=== PATIENT | male | born 1995 | race Caucasian/White ===

== ENCOUNTER 2017-05-10 01:51 | Emergency (ER) | payer MEDICAID ==
--- NOTE | 2017-05-10 01:56 | EDPHY ---
H & P HPI/ROS: Chief Complaint: Alcohol intoxication, vomiting HPI: 21-year-old male who [facility] [place]. Patient passed out after drinking. Is unable to ambulate on their own. Patient brought in by EMS for further evaluation. No obvious signs of trauma per EMS. Remainder of history is unobtainable secondary to the patient's intoxication. ROS: Unobtainable secondary to the patient's intoxication PMH: Unknown Medications: Unknown Allergies: Unknown Social History: Positive for alcohol Family History: non-contributory Physical Exam: Gen: Somnolent, responds to painful stimuli, maintaining airway, smells of alcohol HEENT: Atraumatic Nose: no epistaxis or deformity Eyes: PERRLA, EOMI Mouth: Moist mucosa Neck: Supple, no step-offs or deformity Chest: Atraumatic, lungs clear to auscultation Heart: S1, S2 normal, no murmur Abd: Soft, non-tender, no guarding Back: Atraumatic Ext: no edema, atraumatic Skin: no rash Neuro: Sensation grossly intact, Strength 5/5 in bilateral upper and lower extremities (Ti Mendoza) Constitutional: Initial Vital Signs Temperature (C) 36.4 C 05/10/17 02:04 Heart Rate 74 05/10/17 02:04 Respiratory Rate 14 05/10/17 02:04 Blood Pressure 116/58 L 05/10/17 02:04 O2 Sat (%) 94 05/10/17 02:04 O2 Delivery Mode Room Air O2 (L/minute) 2 Allergies/Adverse Reactions: No Known Allergies Allergy (Unverified 05/10/17 02:10) Home Medications: Medication Instructions Recorded NK [No Known Home Meds] 05/10/17 Medical Decision Making Other Provider: 6:52 a.m.. Patient still sleepy, difficult to arouse. 855: Able to walk without assistance, alert, no complaints clinically stable for discharge. Admits to alcohol, no drug use. No medication, no medical problems, no allergies. (Raj Amaya) Departure - Departure Disposition: Home, Routine, Self-Care Clinical Impression: Alcoholic intoxication Qualifiers: Complication of substance-induced condition: uncomplicated Qualified Code(s): F10.920 - Alcohol use, unspecified with intoxication, uncomplicated Condition: Good Instructions: Alcohol Intoxication (ED) Referrals: Tami Oliva MD [Medical Doctor] - As per Instructions
[2017-05-10 02:09] VITALS: TEMP 97.5
[2017-05-10 06:19] VITALS: BP 116/63; O2SAT 95
[2017-05-10 08:59] VITALS: PULSE 71; RESP 16
== END 2017-05-10 09:10 | disposition home or self-care (01) ==
DX: F10.920 Alcohol use, unspecified with intoxication, uncomplicated (principal)